=== PATIENT | female | born 1980 | race Caucasian/White ===

== ENCOUNTER → 2018-09-17 | Outpatient (CLI) | payer OTHER ==
[~2018-09-17] MED LIST: ALBIPROI INH; ASPI81CH PO; AZIT250 PO; BENZ100A PO; CEPH500 PO; CIPR500 PO; CRUTCH3 USE; CYCL10; ESCI10; ESCI10 PO; HYDACE5 PO; HYDACE5325; NAPR550 PO; OMEP10ER; OMEP20ER PO; ONDA4ODT MM; OTC COLD MEDS; OXYACE5T PO; PRED10 PO; PROC5 PO; RXHYDACE PO; RXTRAM50 PO; TOPI25 PO; TRAM50 PO; Tamiflu75 MG PO; Ultram50 MG PO; VITAMINS; Valium5 MG PO; Verotin-Gr Cap1 EACH PO
== END | disposition home or self-care (01) ==
LOC: LAB SHORT 14:50 → LAB 14:50
PROVIDERS: Obstetrics & Gynecology
DX: Z34.03 Encounter for supervision of normal first pregnancy, third trimester (principal); Z3A.29 29 weeks gestation of pregnancy
CPT/HCPCS: 81050; 84156

== ENCOUNTER 2018-10-20 09:41 | Observation (INO) | payer OTHER ==
[~2018-10-20] VITALS: Ht 167.6 cm; Wt 91.0 kg
[2018-10-20 10:35] LABS: BASOPHILS ABSOLUTE AUTO 0.03 K/mm3 (0.00-0.23); BASOPHILS PERCENT AUTO 0 % (0-2); EOSINOPHILS ABSOLUTE AUTO 0.02 K/mm3 (0.00-0.68); EOSINOPHILS PERCENT AUTO 0 % (0-6); Hematocrit 37.4 % (33.0-51.0); Hemoglobin 12.4 g/dL (11.5-16.0); IMMATURE GRAN ABSOLUTE AUTO 0.05 K/mm3 (0.00-0.10); IMMATURE GRAN PERCENT AUTO 1 % (0-1); LYMPHOCYTES ABSOLUTE AUTO 2.26 K/mm3 (0.84-5.20); LYMPHOCYTES PERCENT AUTO 25 % (21-46); MONOCYTES ABSOLUTE AUTO 0.49 K/mm3 (0.16-1.47); MONOCYTES PERCENT AUTO 5 % (4-13); Mean Corpuscular HGB 29.5 pg (26.0-34.0); Mean Corpuscular HGB Conc 33.2 g/dL (31.5-36.5); Mean Corpuscular Volume 89 fL (80-100); Mean Platelet Volume 10.6 fL (9.1-12.4); NEUTROPHILS ABSOLUTE AUTO 6.16 K/mm3 (1.96-9.15); NEUTROPHILS PERCENT AUTO 68 % (41-73); Platelet Count 289 K/mm3 (150-400); RDW Coefficient Variation 14.4 % (11.7-14.2); RDW Standard Deviation 46.1 fL (35.1-46.3); Red Blood Cell Count 4.21 M/mm3 (3.80-5.20); White Blood Cell Count 9.01 K/mm3 (4.00-11.30)
[2018-10-20 10:59] LABS: Protein, Urine Random 28.8 mg/dL (0.0-11.9); Protein/Creat Ratio, Ur Random 0.1
[2018-10-20 11:01] LABS: Alanine Aminotransfer (ALT/SGP 13 U/L (12-78); Albumin, Blood 2.5 g/dL (3.4-5.0); Albumin/Globulin Ratio 0.7 (0.8-1.8); Alk Phos 171 U/L (50-136); Anion Gap 8 mmol/L (6-16); Aspartate Aminotrans (AST/SGOT 12 U/L (12-37); Bilirubin, Total 0.2 mg/dL (0.1-1.0); Blood Urea Nitrogen 8 mg/dL (8-24); Bun/Creatinine Ratio 11.2 (12.0-20.0); CO2, Blood 21 mmol/L (21-32); Calcium, Blood 8.6 mg/dL (8.5-10.1); Chloride, Blood 110 mmol/L (98-108); Creatinine, Blood 0.72 mg/dL (0.40-1.00); Globulin, Blood 3.8 g/dL (2.2-4.0); Glomerular Filtration Rate >60 (60-); Glucose, Blood 77 mg/dL (70-99); Potassium, Blood 3.5 mmol/L (3.5-5.5); Sodium, Blood 139 mmol/L (136-145); Total Protein, Blood 6.3 g/dL (6.4-8.2)
== END 2018-10-20 23:00 | disposition home or self-care (01) ==
LOC: BC 09:41 → OBS 09:41 → BC 09:46 → OBS 15:12 → BC 15:14
PROVIDERS: ADMIT Obstetrics & Gynecology
DX: O60.03 Preterm labor without delivery, third trimester (principal); O09.523 Supervision of elderly multigravida, third trimester; O30.093 Twin pregnancy, unable to determine number of placenta and number of amniotic sacs, third trimester; O34.219 Maternal care for unspecified type scar from previous cesarean delivery; N85.8 Other specified noninflammatory disorders of uterus; Z79.899 Other long term (current) drug therapy; Z88.5 Allergy status to narcotic agent; Z91.040 Latex allergy status; Z3A.35 35 weeks gestation of pregnancy
CPT/HCPCS: 36415; 59025; 80053; 82570; 84156; 85025; 96360; 96361; 96372; G0378; J0702; J2550; J3105; J7120

== ENCOUNTER 2018-10-21 13:21 | Inpatient (IN) | payer OTHER ==
[~2018-10-21] VITALS: Ht 167.6 cm; Wt 97.2 kg
[2018-10-23] MEDS ORDERED: IRON150C PO (19:03)
[2018-10-23] MEDS ORDERED: NIFE60ER PO (19:03)
[2018-10-23] MEDS ORDERED: Zantac150 MG PO (19:04)
[2018-10-23 19:15] LABS: BASOPHILS ABSOLUTE AUTO 0.03 K/mm3 (0.00-0.23); BASOPHILS PERCENT AUTO 0 % (0-2); EOSINOPHILS ABSOLUTE AUTO 0.03 K/mm3 (0.00-0.68); EOSINOPHILS PERCENT AUTO 0 % (0-6); Hematocrit 37.3 % (33.0-51.0); Hemoglobin 12.2 g/dL (11.5-16.0); IMMATURE GRAN ABSOLUTE AUTO 0.07 K/mm3 (0.00-0.10); IMMATURE GRAN PERCENT AUTO 1 % (0-1); LYMPHOCYTES ABSOLUTE AUTO 2.28 K/mm3 (0.84-5.20); LYMPHOCYTES PERCENT AUTO 24 % (21-46); MONOCYTES ABSOLUTE AUTO 0.48 K/mm3 (0.16-1.47); MONOCYTES PERCENT AUTO 5 % (4-13); Mean Corpuscular HGB Conc 32.7 g/dL (31.5-36.5); Mean Platelet Volume 11.2 fL (9.1-12.4); NEUTROPHILS ABSOLUTE AUTO 6.83 K/mm3 (1.96-9.15); NEUTROPHILS PERCENT AUTO 70 % (41-73); Platelet Count 308 K/mm3 (150-400); RDW Coefficient Variation 14.6 % (11.7-14.2); RDW Standard Deviation 46.9 fL (35.1-46.3); Red Blood Cell Count 4.21 M/mm3 (3.80-5.20); White Blood Cell Count 9.72 K/mm3 (4.00-11.30)
[2018-10-23 19:16] LABS: Mean Corpuscular Volume 89 fL (80-100)
[2018-10-23 20:16] LABS: PCO2 Cord - Arterial 51.5 mmHg (40-50); PO2 Cord - Arterial 12.4 mmHg (16-20); pH Cord - Arterial 7.31 (7.28-7.35)
[2018-10-23 20:17] LABS: PCO2 Cord - Venous 41.5 mmHg (40-50); PO2 Cord - Venous 17.7 mmHg (28-32); pH Umbilical Cord - Venous 7.37 (7.26-7.35)
--- NOTE | 2018-10-23 20:23 | NUR ---
10/23/181999: RT CALLED FOR TWINS . ALL EQUIPMENT AND WARMER WAS ON AND FUNCTIONING PROPERLY PRIOR TO . BABY B WAS BROUGHT TO WARMER, HAD WEAK CRY WITH STIMULATION. AT ABOUT 1 MINS BABY HAD STRONG CRY, GOOD TONE, GOOD COLOR, HR IN 130'S PER RN. BABY WAS DRIED, STIMULATED, AND WEIGHED AT WARMER, THEN READIED FOR MOM. NO FURTHER RT INTERVENTIONS AT THIS TIME. RT FOR TWIN B AT : Kayode LANGE, COMMERCIAL TITLE EXAMINER
--- NOTE | 2018-10-23 20:25 | NUR ---
10/23/182024 Yunior Chairez BABY #1 BORN AT 2000 BABY #2 BORN AT 2001
[2018-10-24 05:55] LABS: BASOPHILS ABSOLUTE AUTO 0.02 K/mm3 (0.00-0.23); BASOPHILS PERCENT AUTO 0 % (0-2); EOSINOPHILS ABSOLUTE AUTO 0.06 K/mm3 (0.00-0.68); EOSINOPHILS PERCENT AUTO 1 % (0-6); Hematocrit 28.7 % (33.0-51.0); Hemoglobin 9.4 g/dL (11.5-16.0); IMMATURE GRAN ABSOLUTE AUTO 0.06 K/mm3 (0.00-0.10); IMMATURE GRAN PERCENT AUTO 1 % (0-1); LYMPHOCYTES ABSOLUTE AUTO 2.44 K/mm3 (0.84-5.20); LYMPHOCYTES PERCENT AUTO 21 % (21-46); MONOCYTES ABSOLUTE AUTO 0.57 K/mm3 (0.16-1.47); MONOCYTES PERCENT AUTO 5 % (4-13); Mean Corpuscular HGB 28.8 pg (26.0-34.0); Mean Corpuscular HGB Conc 32.8 g/dL (31.5-36.5); Mean Corpuscular Volume 88 fL (80-100); Mean Platelet Volume 11.1 fL (9.1-12.4); NEUTROPHILS ABSOLUTE AUTO 8.76 K/mm3 (1.96-9.15); NEUTROPHILS PERCENT AUTO 74 % (41-73); Platelet Count 209 K/mm3 (150-400); RDW Coefficient Variation 14.5 % (11.7-14.2); RDW Standard Deviation 46.5 fL (35.1-46.3); Red Blood Cell Count 3.26 M/mm3 (3.80-5.20); White Blood Cell Count 11.91 K/mm3 (4.00-11.30)
--- NOTE | 2018-10-24 07:30 | NUR ---
GESTATIONAL CARRIER. FOB'S ACROSS THE STEIN. PT DOING WELL.
--- NOTE | 2018-10-24 07:40 | NUR ---
FOB'S OF THE BABIES BOTTLE FEEDING. PT THOUGHT THEY WERE GOING TO HAVE HER BF. WHEN I EXPLAINED THAT THEY HAD ALREADY STARTED TO BOTTLE FEED, PT BECAME VERY EMOTIONAL STATING THAT SHE IS EXHAUSTED AND IN PAIN AND THE BABIES NEED TO EAT AND THAT IS STRESSING HER OUT. FACE TO FACE TIME WITH PT FOR 45 MIN, DISCUSSING THE EMOTIONAL TOLL SURROGACY CAN BE AND SHE VERBALIZED FEELING MANY THINGS, BUT WANTS WHAT IS BEST FOR BABY. REASSURED HER THAT THE DADS WERE DOING VERY WELL AND THAT EVERYTHING SHE IS FEELING IS NORMAL.
--- NOTE | 2018-10-24 16:00 | NUR ---
PT UP TO SHOWER, THEN WAS UP WALKING AROUND THE ROOM. NO VITALS DONE AT THIS TIME.
--- NOTE | 2018-10-24 17:00 | NUR ---
REPORT TO FARIDA ROSS RN
--- NOTE | 2018-10-26 14:03 | NUR ---
PSYCHOSOCIAL: DISCUSSED HOW PT IS FEELING NOW THAT [facility] HAVE BEEN DISCHARGED. PT SEEMS TO BE HANDLING THE DISCHARGE WELL. SHE FEELS SAD LIKE SHE HAS SAID GOODBYE TO A FRIEND OR FAMILY MEMBER THAT SHE WILL MISS BUT DOES NOT FEEL LIKE SHE JUST GAVE AWAY HER OWN CHILD. PT SEEMS TO HAVE A GOOD RELATIONSHIP WITH [facility] AND WILL GET UPDATES ON [facility]. WILL PROVIDE ADDITIONAL PSYCHOSOCIAL TEACHING WITH DISCHARGE TEACHING
[2018-10-26] MEDS ORDERED: Percocet 5-3251 EACH PO (14:16)
[2018-10-26] MEDS ORDERED: DOCU100 PO (14:17)
[2018-10-26] MEDS ORDERED: IBUP800 PO (14:17)
--- NOTE | 2018-10-26 14:38 | NUR ---
PT REPORTS PAIN STILL 11/12 BUT PT WAS JUST UP WALKING TO [place]. DECLINES FURTHER PAIN MEDICATION AT THIS TIME WILL JUST LET THINGS SETTLE AFTER BEING UP.
--- NOTE | 2018-10-26 14:57 | NUR ---
PT GIVEN RX, REVIEWED D/C INSTRUCTIONS. PT RECEIVED VERBAL AND WRITTEN INSTRUCTIONS WITH NO QUESTIONS. SHE VERBALIZES HER UNDERSTANDING. PT HAS NO REQUESTS AT THIS TIME. PT WILL CALL WHEN HER RIDE ARRIVES FOR AN ESCORT OUT
--- NOTE | 2018-10-26 15:08 | NUR ---
PT ESCORTED TO PRIVATE CAR IN STABLE CONDITION WITH BELONGINGS
== END 2018-10-26 15:05 | disposition home or self-care (01) | DRG 788 ==
LOC: BC 10-23 18:29
PROVIDERS: ADMIT Obstetrics & Gynecology
PROC: 10D00Z1 Extraction of Products of Conception, Low, Open Approach (ICD-10-PCS; principal; 2018-10-23 18:30)
DX: O34.211 Maternal care for low transverse scar from previous cesarean delivery (principal); Z3A.36 36 weeks gestation of pregnancy; Z37.0 Single live birth; Z88.5 Allergy status to narcotic agent; Z91.040 Latex allergy status
CPT/HCPCS: 36415; 82803; 85025; 86850; 86900; 86901; J0690; J1885; J2405; J2590; J2765; J3010; J7120

== ENCOUNTER 2019-01-24 11:56 | Emergency (ER) | payer OTHER ==
[~2019-01-24] VITALS: Ht 167.6 cm; Wt 86.2 kg
[~2019-01-24 11:56] MED LIST changes: +DOCU100 PO; +IBUP800 PO; +IRON150C PO; +NIFE60ER PO; +Percocet 5-3251 EACH PO; +Zantac150 MG PO
[2019-01-24 13:27] LABS: BASOPHILS ABSOLUTE AUTO 0.02 K/mm3 (0.00-0.23); BASOPHILS PERCENT AUTO 0 % (0-2); EOSINOPHILS ABSOLUTE AUTO 0.09 K/mm3 (0.00-0.68); EOSINOPHILS PERCENT AUTO 1 % (0-6); Hematocrit 37.7 % (33.0-51.0); Hemoglobin 12.1 g/dL (11.5-16.0); IMMATURE GRAN ABSOLUTE AUTO 0.02 K/mm3 (0.00-0.10); IMMATURE GRAN PERCENT AUTO 0 % (0-1); LYMPHOCYTES ABSOLUTE AUTO 2.38 K/mm3 (0.84-5.20); LYMPHOCYTES PERCENT AUTO 37 % (21-46); MONOCYTES ABSOLUTE AUTO 0.37 K/mm3 (0.16-1.47); MONOCYTES PERCENT AUTO 6 % (4-13); Mean Corpuscular HGB 28.5 pg (26.0-34.0); Mean Corpuscular HGB Conc 32.1 g/dL (31.5-36.5); Mean Corpuscular Volume 89 fL (80-100); Mean Platelet Volume 9.1 fL (9.1-12.4); NEUTROPHILS ABSOLUTE AUTO 3.54 K/mm3 (1.96-9.15); NEUTROPHILS PERCENT AUTO 55 % (41-73); Platelet Count 327 K/mm3 (150-400); RDW Coefficient Variation 14.5 % (11.7-14.2); RDW Standard Deviation 46.8 fL (35.1-46.3); Red Blood Cell Count 4.24 M/mm3 (3.80-5.20); White Blood Cell Count 6.42 K/mm3 (4.00-11.30)
[2019-01-24 13:41] LABS: Alanine Aminotransfer (ALT/SGP 28 U/L (12-78); Albumin, Blood 3.9 g/dL (3.4-5.0); Albumin/Globulin Ratio 1.1 (0.8-1.8); Alk Phos 56 U/L (50-136); Anion Gap 4 mmol/L (6-16); Aspartate Aminotrans (AST/SGOT 16 U/L (12-37); Bilirubin, Total 0.4 mg/dL (0.1-1.0); Blood Urea Nitrogen 10 mg/dL (8-24); Bun/Creatinine Ratio 14.4 (12.0-20.0); CO2, Blood 29 mmol/L (21-32); Calcium, Blood 9.2 mg/dL (8.5-10.1); Chloride, Blood 107 mmol/L (98-108); Globulin, Blood 3.6 g/dL (2.2-4.0); Glomerular Filtration Rate >60 (60-); Glucose, Blood 81 mg/dL (70-99); Potassium, Blood 3.8 mmol/L (3.5-5.5); Sodium, Blood 140 mmol/L (136-145); Total Protein, Blood 7.5 g/dL (6.4-8.2)
[2019-01-24 14:50] LABS: Source, Urine Clean Catch
[2019-01-24 14:53] LABS: Bilirubin, Urine Neg (Neg); Blood, Urine 2+ (Neg); Glucose Qualitative, Urine Neg (Neg); Ketones, Urine Neg (Neg); Leukocyte Esterase, Urine Neg (Neg); Nitrite, Urine Neg (Neg); Protein, Urine Neg (Neg); Urobilinogen, Urine NORM (Normal)
[2019-01-24 15:02] LABS: Appearance, Urine Clear (Clear); Color, Urine Pale Yellow (P-Yellow)
[2019-01-24 15:21] LABS: Bacteria Rare /hpf; Red Blood Cells, Urine Rare /hpf (0-2); Squamous Epithelial Cells Rare /hpf (Few); White Blood Cells, Urine Not Seen /hpf (0-5)
[2019-01-24] MEDS ORDERED: Provera10 MG PO (16:13)
== END 2019-01-24 16:20 | disposition home or self-care (01) ==
LOC: ER 11:56
PROVIDERS: Physician Assistant
DX: N93.9 Abnormal uterine and vaginal bleeding, unspecified (principal); Z87.891 Personal history of nicotine dependence; Z91.040 Latex allergy status; Z88.5 Allergy status to narcotic agent
CPT/HCPCS: 36415; 80053; 81001; 81025; 85025; 86850; 86900; 86901; 99284

== ENCOUNTER → 2020-03-14 | Outpatient (CLI) | payer OTHER ==
[~2020-03-14] MED LIST changes: +Provera10 MG PO
== END | disposition home or self-care (01) ==
LOC: LAB SHORT 06:58 → LAB EV 06:58
DX: O09.811 Supervision of pregnancy resulting from assisted reproductive technology, first trimester (principal)
CPT/HCPCS: 36415; 84702

== ENCOUNTER → 2020-03-16 | Outpatient (CLI) | payer OTHER ==
[2020-03-16 11:03] LABS: Progesterone 48.2 ng/mL
== END | disposition home or self-care (01) ==
LOC: LAB EV 07:00 → LAB SHORT 07:00
PROVIDERS: Specialist
DX: O09.811 Supervision of pregnancy resulting from assisted reproductive technology, first trimester (principal)
CPT/HCPCS: 36415; 82670; 84144; 84702

== ENCOUNTER → 2020-03-18 | Outpatient (CLI) | payer OTHER | END | disposition home or self-care (01) | LOC: LAB EV 07:08 → LAB SHORT 07:08 | DX: O09.811 Supervision of pregnancy resulting from assisted reproductive technology, first trimester (principal) | CPT/HCPCS: 84702 ==

== ENCOUNTER → 2020-06-02 | Outpatient (CLI) | payer OTHER ==
[~2020-06-02] MED LIST changes: +METO25ER PO
[2020-06-02 13:20] LABS: BASOPHILS ABSOLUTE AUTO 0.01 K/mm3 (0.00-0.23); BASOPHILS PERCENT AUTO 0 % (0-2); EOSINOPHILS ABSOLUTE AUTO 0.05 K/mm3 (0.00-0.68); EOSINOPHILS PERCENT AUTO 1 % (0-6); Hematocrit 39.8 % (33.0-51.0); Hemoglobin 13.1 g/dL (11.5-16.0); IMMATURE GRAN ABSOLUTE AUTO 0.05 K/mm3 (0.00-0.10); IMMATURE GRAN PERCENT AUTO 1 % (0-1); LYMPHOCYTES ABSOLUTE AUTO 2.59 K/mm3 (0.84-5.20); LYMPHOCYTES PERCENT AUTO 25 % (21-46); MONOCYTES PERCENT AUTO 4 % (4-13); Mean Corpuscular HGB 28.9 pg (26.0-34.0); Mean Corpuscular HGB Conc 32.9 g/dL (31.5-36.5); Mean Corpuscular Volume 88 fL (80-100); Mean Platelet Volume 9.3 fL (9.1-12.4); NEUTROPHILS ABSOLUTE AUTO 7.38 K/mm3 (1.96-9.15); NEUTROPHILS PERCENT AUTO 70 % (41-73); Platelet Count 401 K/mm3 (150-400); RDW Coefficient Variation 13.6 % (11.7-14.2); RDW Standard Deviation 43.3 fL (35.1-46.3); Red Blood Cell Count 4.54 M/mm3 (3.80-5.20); White Blood Cell Count 10.48 K/mm3 (4.00-11.30)
[2020-06-02 13:24] LABS: Anion Gap 9 mmol/L (6-16); Blood Urea Nitrogen 6 mg/dL (8-24); Bun/Creatinine Ratio 10.7 (12.0-20.0); CO2, Blood 24 mmol/L (21-32); Calcium, Blood 9.4 mg/dL (8.5-10.1); Chloride, Blood 102 mmol/L (98-108); Creatinine, Blood 0.56 mg/dL (0.40-1.00); Glomerular Filtration Rate >60 (60-); Glucose, Blood 97 mg/dL (70-99); Potassium, Blood 3.7 mmol/L (3.5-5.5); Sodium, Blood 135 mmol/L (136-145)
== END | disposition home or self-care (01) ==
LOC: LAB EV 13:16 → LAB SHORT 13:16
PROVIDERS: Family Medicine
DX: R53.83 Other fatigue (principal)
CPT/HCPCS: 80048; 85025

== ENCOUNTER → 2020-09-29 | Outpatient (CLI) | payer OTHER | END | disposition home or self-care (01) | LOC: LAB SHORT 16:12 → LAB 16:12 | DX: O99.891 Other specified diseases and conditions complicating pregnancy (principal); R82.90 Unspecified abnormal findings in urine; Z3A.32 32 weeks gestation of pregnancy | CPT/HCPCS: 87086 ==

== ENCOUNTER → 2020-10-25 | Outpatient (CLI) | payer OTHER | END | disposition home or self-care (01) | LOC: LAB 15:46 → LAB SHORT 15:46 | DX: Z34.83 Encounter for supervision of other normal pregnancy, third trimester (principal); Z3A.36 36 weeks gestation of pregnancy | CPT/HCPCS: 87081; 87150 ==

== ENCOUNTER 2020-11-10 20:56 | Inpatient (IN) | payer OTHER ==
[~2020-11-10] VITALS: Ht 167.6 cm; Wt 93.2 kg
[~2020-11-10 20:56] MED LIST changes: -METO25ER PO
[2020-11-10] MEDS ORDERED: METO25ER PO (21:58)
[2020-11-10 22:50] LABS: BASOPHILS ABSOLUTE AUTO 0.02 K/mm3 (0.00-0.23); BASOPHILS PERCENT AUTO 0 % (0-2); EOSINOPHILS ABSOLUTE AUTO 0.05 K/mm3 (0.00-0.68); EOSINOPHILS PERCENT AUTO 1 % (0-6); Hematocrit 37.7 % (33.0-51.0); Hemoglobin 12.8 g/dL (11.5-16.0); IMMATURE GRAN ABSOLUTE AUTO 0.05 K/mm3 (0.00-0.10); IMMATURE GRAN PERCENT AUTO 1 % (0-1); LYMPHOCYTES ABSOLUTE AUTO 2.69 K/mm3 (0.84-5.20); LYMPHOCYTES PERCENT AUTO 27 % (21-46); MONOCYTES ABSOLUTE AUTO 0.54 K/mm3 (0.16-1.47); MONOCYTES PERCENT AUTO 6 % (4-13); Mean Corpuscular HGB 30.8 pg (26.0-34.0); Mean Corpuscular Volume 91 fL (80-100); Mean Platelet Volume 10.2 fL (9.1-12.4); NEUTROPHILS ABSOLUTE AUTO 6.45 K/mm3 (1.96-9.15); NEUTROPHILS PERCENT AUTO 66 % (41-73); Platelet Count 319 K/mm3 (150-400); RDW Standard Deviation 48.8 fL (35.1-46.3); Red Blood Cell Count 4.16 M/mm3 (3.80-5.20)
[2020-11-10 23:22] LABS: PCO2 Cord - Arterial 55.5 mmHg (40-50); pH Cord - Arterial 7.32 (7.28-7.35)
[2020-11-10 23:23] LABS: PO2 Cord - Arterial < 13 mmHg (16-20)
[2020-11-10 23:24] LABS: PCO2 Cord - Venous 43.6 mmHg (40-50); pH Umbilical Cord - Venous 7.38 (7.26-7.35)
--- NOTE | 2020-11-10 23:24 | NUR ---
11/10/20 2324 Shirley Gregory BABY GIRL BORN AT 2311. CORD SEGMENT SENT WITH YULI AGUILAR. CORD BLOOD SENT WITH SAWYER HAAS RN.
[2020-11-11 06:11] LABS: BASOPHILS ABSOLUTE AUTO 0.03 K/mm3 (0.00-0.23); BASOPHILS PERCENT AUTO 0 % (0-2); EOSINOPHILS ABSOLUTE AUTO 0.06 K/mm3 (0.00-0.68); EOSINOPHILS PERCENT AUTO 0 % (0-6); Hematocrit 32.5 % (33.0-51.0); Hemoglobin 10.9 g/dL (11.5-16.0); IMMATURE GRAN ABSOLUTE AUTO 0.06 K/mm3 (0.00-0.10); IMMATURE GRAN PERCENT AUTO 0 % (0-1); LYMPHOCYTES ABSOLUTE AUTO 2.84 K/mm3 (0.84-5.20); LYMPHOCYTES PERCENT AUTO 19 % (21-46); MONOCYTES ABSOLUTE AUTO 0.55 K/mm3 (0.16-1.47); MONOCYTES PERCENT AUTO 4 % (4-13); Mean Corpuscular HGB 30.5 pg (26.0-34.0); Mean Corpuscular HGB Conc 33.5 g/dL (31.5-36.5); Mean Corpuscular Volume 91 fL (80-100); Mean Platelet Volume 9.8 fL (9.1-12.4); NEUTROPHILS ABSOLUTE AUTO 11.22 K/mm3 (1.96-9.15); NEUTROPHILS PERCENT AUTO 76 % (41-73); Platelet Count 257 K/mm3 (150-400); RDW Coefficient Variation 14.8 % (11.7-14.2); Red Blood Cell Count 3.57 M/mm3 (3.80-5.20); White Blood Cell Count 14.76 K/mm3 (4.00-11.30)
--- NOTE | 2020-11-11 20:50 | NUR ---
REPORT TO KRISSY MCCALL RN
[2020-11-12] MEDS ORDERED: Percocet 5-3251 EACH PO (12:57)
[2020-11-12] MEDS ORDERED: IBUP800 PO (12:57)
--- NOTE | 2020-11-12 13:12 | NUR ---
DISCHARGE INSTRUCTIONS, WRITTEN AND VERBAL, GIVEN TO PATIENT. ANSWERED ALL QUESTIONS AND CONCERNS. PT REFUSED FOLLOW UP APPOINTMENT. REQUESTED SHE CALL PROVIDERS' OFFICE AND SCHEDULED FOLLOW UP APPOINTMENT PER D/C PAPERWORK. ALL PERSONAL BELONGINGS RETURNED. IV DISCONTINUED. WRITTEN PRESCRIPTIONS HANDED TO PT. PT IS READY FOR DISCAHRGE.
== END 2020-11-12 13:25 | disposition home or self-care (01) | DRG 788 ==
LOC: OBS 20:56 → BC 20:57 → OBS 21:28 → BC 21:29
PROVIDERS: ADMIT Obstetrics & Gynecology
PROC: 10D00Z1 Extraction of Products of Conception, Low, Open Approach (ICD-10-PCS; principal; 2020-11-10 22:00)
DX: O34.211 Maternal care for low transverse scar from previous cesarean delivery (principal); Z3A.38 38 weeks gestation of pregnancy; Z37.0 Single live birth; O69.81X0 Labor and delivery complicated by cord around neck, without compression, not applicable or unspecified; Z88.5 Allergy status to narcotic agent; Z91.040 Latex allergy status; Z79.899 Other long term (current) drug therapy; Z90.49 Acquired absence of other specified parts of digestive tract; Z90.89 Acquired absence of other organs; Z98.890 Other specified postprocedural states
CPT/HCPCS: 36415; 59025; 82803; 85025; 86850; 86900; 86901; A9270; J0690; J1885; J2370; J2405; J2590; J2704; J2765; J3010; J7120

== ENCOUNTER → 2020-12-27 | Outpatient (CLI) | payer OTHER ==
[~2020-12-27] MED LIST changes: +METO25ER PO
== END | disposition home or self-care (01) ==
LOC: LAB 17:35 → LAB SHORT 17:35
DX: R30.0 Dysuria (principal)
CPT/HCPCS: 87086

== ENCOUNTER → 2021-03-27 | Outpatient (CLI) | payer OTHER ==
[2021-03-27 11:50] LABS: BASOPHILS ABSOLUTE AUTO 0.02 K/mm3 (0.00-0.23); BASOPHILS PERCENT AUTO 0 % (0-2); EOSINOPHILS ABSOLUTE AUTO 0.03 K/mm3 (0.00-0.68); EOSINOPHILS PERCENT AUTO 0 % (0-6); Hematocrit 39.7 % (33.0-51.0); Hemoglobin 13.4 g/dL (11.5-16.0); IMMATURE GRAN ABSOLUTE AUTO 0.02 K/mm3 (0.00-0.10); IMMATURE GRAN PERCENT AUTO 0 % (0-1); LYMPHOCYTES ABSOLUTE AUTO 2.42 K/mm3 (0.84-5.20); LYMPHOCYTES PERCENT AUTO 32 % (21-46); MONOCYTES ABSOLUTE AUTO 0.33 K/mm3 (0.16-1.47); MONOCYTES PERCENT AUTO 4 % (4-13); Mean Corpuscular HGB 29.2 pg (26.0-34.0); Mean Corpuscular HGB Conc 33.8 g/dL (31.5-36.5); Mean Corpuscular Volume 87 fL (80-100); Mean Platelet Volume 8.7 fL (9.1-12.4); NEUTROPHILS ABSOLUTE AUTO 4.83 K/mm3 (1.96-9.15); NEUTROPHILS PERCENT AUTO 63 % (41-73); Platelet Count 386 K/mm3 (150-400); RDW Coefficient Variation 13.2 % (11.7-14.2); RDW Standard Deviation 41.1 fL (35.1-46.3); Red Blood Cell Count 4.59 M/mm3 (3.80-5.20); White Blood Cell Count 7.65 K/mm3 (4.00-11.30)
[2021-03-27 12:02] LABS: Anion Gap 10 mmol/L (6-16); Blood Urea Nitrogen 10 mg/dL (8-24); Bun/Creatinine Ratio 13.2 (12.0-20.0); CO2, Blood 26 mmol/L (21-32); Calcium, Blood 9.7 mg/dL (8.5-10.1); Chloride, Blood 101 mmol/L (98-108); Creatinine, Blood 0.76 mg/dL (0.40-1.00); Glomerular Filtration Rate >60 (60-); Glucose, Blood 102 mg/dL (70-99); Potassium, Blood 4.1 mmol/L (3.5-5.5); Sodium, Blood 137 mmol/L (136-145)
== END | disposition home or self-care (01) ==
LOC: LAB 11:46 → LAB SHORT 11:46
PROVIDERS: Physician Assistant
DX: R05.9 Cough, unspecified (principal)
CPT/HCPCS: 80048; 85025; 85379

== ENCOUNTER → 2021-04-03 | Outpatient (CLI) | payer OTHER ==
[2021-04-05 16:39] LABS: CORONAVIRUS (COVID19) CSH-NRL Negative (Negative)
== END ==
LOC: LAB 12:50 → LAB SHORT 12:50
PROVIDERS: Physician Assistant
DX: Z20.822 Contact with and (suspected) exposure to COVID-19 (principal); Z88.5 Allergy status to narcotic agent; Z91.040 Latex allergy status
CPT/HCPCS: U0003

== ENCOUNTER 2022-12-12 11:05 | Day surgery (SDC) | payer OTHER ==
[~2022-12-12] VITALS: Ht 167.6 cm; Wt 93.0 kg
[2022-12-12] MEDS ORDERED: METFORMIN HCL500 M3 PO (11:45)
--- NOTE | 2022-12-12 12:13 | NUR ---
12/12/22 1213 Amaris Dennis 1206 TIME OUT TO VERIFY CORRECT PT, PROCEEDURE, LOCATION AND ALLERGIES. PT ELECTED TO PROCEED WITH THE BLOCK. VSS THROUGHOUT PROCEEDURE. 2MG VERSED GIVEN IV AT 1207. PT TOLERATED WELL
--- NOTE | 2022-12-12 13:26 | NUR ---
12/12/22 1326 DEBORAH LEWIS IV REMOVED INTACT. SITE WNL.
[2022-12-12 13:31] VITALS: BP 153/74
== END 2022-12-12 13:20 | disposition home or self-care (01) ==
LOC: ORSCSDS 11:05
PROVIDERS: Orthopaedic Surgery
PROC: 01N54ZZ Release Median Nerve, Percutaneous Endoscopic Approach (ICD-10-PCS; principal; 2022-12-12 12:15)
DX: G56.03 Carpal tunnel syndrome, bilateral upper limbs (principal); F32.A Depression, unspecified; Z87.891 Personal history of nicotine dependence; E11.9 Type 2 diabetes mellitus without complications; Z79.84 Long term (current) use of oral hypoglycemic drugs; Z79.899 Other long term (current) drug therapy
CPT/HCPCS: 82947; J2250; J7120

== ENCOUNTER 2023-04-18 10:41 | Day surgery (SDC) | payer OTHER ==
[~2023-04-18] VITALS: Ht 167.6 cm; Wt 86.5 kg
[~2023-04-18 10:41] MED LIST changes: +METFORMIN HCL500 M3 PO
[2023-04-18] MEDS ORDERED: OZEMPIC0.25 MG/02 (11:03)
--- NOTE | 2023-04-18 11:51 | NUR ---
04/18/23 1151 DEBORAH LEWIS T/O 1150 RIGHT CARPAL TUNNEL LOCAL 1148 VERSED [address] ROSAS PRE LOCAL O2 100% RA
[2023-04-18 12:26] VITALS: BP 137/78
== END 2023-04-18 12:55 | disposition home or self-care (01) ==
LOC: ORSCSDS 10:41
PROVIDERS: Orthopaedic Surgery
PROC: 01N54ZZ Release Median Nerve, Percutaneous Endoscopic Approach (ICD-10-PCS; principal; 2023-04-18 12:00)
DX: G56.01 Carpal tunnel syndrome, right upper limb (principal); E11.9 Type 2 diabetes mellitus without complications; F32.A Depression, unspecified; Z87.11 Personal history of peptic ulcer disease; Z68.33 Body mass index [BMI] 33.0-33.9, adult; Z79.84 Long term (current) use of oral hypoglycemic drugs; Z79.899 Other long term (current) drug therapy
CPT/HCPCS: 82947; J2250; J7120

== ENCOUNTER → 2024-02-08 | Outpatient (CLI) | payer OTHER ==
[~2024-02-08] MED LIST changes: +OZEMPIC0.25 MG/02
[2024-02-08 14:45] LABS: Hematocrit 35.7 % (33.0-51.0); Hemoglobin 11.8 g/dL (11.5-16.0); Mean Corpuscular HGB Conc 33.1 g/dL (31.5-36.5); Mean Corpuscular Volume 85 fL (80-100); Mean Platelet Volume 8.5 fL (9.1-12.4); Platelet Count 416 K/mm3 (150-400); RDW Coefficient Variation 12.6 % (11.7-14.2); RDW Standard Deviation 38.8 fL (35.1-46.3); Red Blood Cell Count 4.22 M/mm3 (3.80-5.20); White Blood Cell Count 7.53 K/mm3 (4.00-11.30)
[2024-02-08 14:57] LABS: Albumin, Blood 3.2 g/dL (3.4-5.0); Albumin/Globulin Ratio 0.8 (0.8-1.8); Bilirubin, Total 0.3 mg/dL (0.1-1.0); Calcium, Blood 8.9 mg/dL (8.5-10.1); Creatinine, Blood 0.61 mg/dL (0.40-1.00); Globulin, Blood 3.9 g/dL (2.2-4.0); Potassium, Blood 3.8 mmol/L (3.5-5.5); Total Protein, Blood 7.1 g/dL (6.4-8.2)
[2024-02-08 15:39] LABS: BAND PERCENT MAN 1 % (0-8); BASOPHILS ABSOLUTE MAN 0.15 K/mm3 (0.00-0.23); BASOPHILS PERCENT MAN 2 % (0-2); EOSINOPHILS PERCENT MAN 0 % (0-6); LYMPHOCYTES % ATYPICAL MANUAL 2 % (0-0); LYMPHOCYTES ABSOLUTE MAN 2.48 K/mm3 (0.84-5.20); LYMPHOCYTES PERCENT MAN 31 % (21-46); MONOCYTES PERCENT MAN 8 % (4-13); NEUTROPHILS ABSOLUTE MAN 4.29 K/mm3 (1.96-9.15); SEG NEUTROPHILS PERCENT MAN 56 % (41-73); TOTAL CELLS COUNTED 100
== END ==
LOC: LAB SHORT 13:59 → LAB 13:59
PROVIDERS: Physician Assistant
DX: R10.84 Generalized abdominal pain (principal)
CPT/HCPCS: 80053; 83690; 85025

== ENCOUNTER 2024-03-26 10:34 | Day surgery (SDC) | payer OTHER ==
[~2024-03-26] VITALS: Ht 167.6 cm; Wt 82.1 kg
[~2024-03-26 10:34] MED LIST changes: +Lactated Ringer's 1,000 ML IV ONE
--- NOTE | 2024-03-26 10:56 | NUR ---
SISTER HAS ISSUES WITH ANETHESIA
[2024-03-26] MEDS ORDERED: IBUP200 PO (10:57)
[2024-03-26] MEDS ORDERED: Methocarbamol750 MG PO (10:57)
[2024-03-26] MEDS ORDERED: Lactated Ringer's 1,000 ML IV ONE (11:10)
[2024-03-26] MEDS ORDERED: Dexamethasone Sod Phos 10 MG/ML 1ML VIAL ONE (11:17)
[2024-03-26] MEDS ORDERED: Ketorolac Tromethamine 30mg Vial ONE (11:17)
[2024-03-26] MEDS ORDERED: FentaNYL Citrate 50 MCG/ML 2 ML Injection ONE ×2 (11:17→12:45)
[2024-03-26] MEDS ORDERED: propofoL 20 ML IV ONE (11:17)
[2024-03-26] MEDS ORDERED: Ondansetron HCl 2 MG / ML 2ML Vial ONE (11:17)
--- NOTE | 2024-03-26 12:46 | NUR ---
03/26/24 1246 Brandie Reardon ENDOMETRIAL ABLATION: 5.0 CM X 4.7 CM, TIME 1:26
[2024-03-26] MEDS ORDERED: HYDROcodone 5-APAP 325 TAB ONE (13:28)
[2024-03-26 13:33] VITALS: BP 130/79
== END 2024-03-26 13:56 | disposition home or self-care (01) ==
LOC: ORSCSDS 10:34
PROVIDERS: Obstetrics & Gynecology
PROC: 0U5B8ZZ Destruction of Endometrium, Via Natural or Artificial Opening Endoscopic (ICD-10-PCS; principal; 2024-03-26 12:00)
DX: N92.0 Excessive and frequent menstruation with regular cycle (principal); N92.6 Irregular menstruation, unspecified; Z79.899 Other long term (current) drug therapy; Z79.85 Long-term (current) use of injectable non-insulin antidiabetic drugs
CPT/HCPCS: 82947; A9270; J1100; J1885; J2405; J2704; J3010; J7120

== ENCOUNTER → 2024-07-21 | Outpatient (CLI) | payer OTHER ==
[~2024-07-21] MED LIST changes: +IBUP200 PO; -Lactated Ringer's 1,000 ML IV ONE; +Methocarbamol750 MG PO
== END | disposition home or self-care (01) ==
LOC: LAB SHORT 15:33 → LAB 15:33
DX: N39.0 Urinary tract infection, site not specified (principal); R31.9 Hematuria, unspecified
CPT/HCPCS: 87077; 87086; 87186